=== PATIENT | male | born 1995 | race Two or more races ===

== ENCOUNTER 2019-01-05 09:19 | Day surgery (SDC) | payer SELFPAY ==
[~2019-01-05] VITALS: Ht 180.3 cm; Wt 75.8 kg
[~2019-01-05 09:19] MED LIST: BUPIVACAINE/EPI 0.5% 1:200K ONE
[2019-01-05] MEDS ORDERED: LACTATED RINGERS 1,000 ML IV SCH (09:49)
[2019-01-05] MEDS ORDERED: NONE PER PT (09:51)
[2019-01-05] MEDS ORDERED: PLEASE ENTER HEIGHT AND WEIGHT MC SCH (10:00)
[2019-01-05 10:01] VITALS: BP 120/75
[2019-01-05 10:12] VITALS: BP 120/75
[2019-01-05] MEDS ORDERED: ASPI-650 PO (10:23)
[2019-01-05] MEDS ORDERED: LORA-445 PO (10:23)
[2019-01-05] MEDS ORDERED: MIDAZOLAM 1 MG/ML, 2ML ONE (12:48)
[2019-01-05] MEDS ORDERED: FENTANYL PF 250 MCG/5ML ONE (12:53)
[2019-01-05] MEDS ORDERED: KETOROLAC 30 MG/1 ML ONE (12:54)
[2019-01-05] MEDS ORDERED: ONDANSETRON 2MG/ML, 2ML ONE (12:54)
[2019-01-05] MEDS ORDERED: DEXAMETHASONE 4 MG/ML, 1ML ONE (12:54)
[2019-01-05] MEDS ORDERED: PROPOFOL 10 MG/ML, 20ML ONE (12:54)
[2019-01-05] MEDS ORDERED: PROPOFOL 50 ML ONE (13:06)
[2019-01-05] MEDS ORDERED: FENTANYL PF 100 MCG/2ML ONE (13:45)
[2019-01-05] MEDS ORDERED: OXYcodone 5 MG/5 ML ORAL.SOL UDC ONE (13:45)
[2019-01-05] MEDS ORDERED: hydrALAzine 20 MG/ML, 1ML IV PRN (14:00)
[2019-01-05] MEDS ORDERED: MIDAZOLAM 1 MG/ML, 2ML IV PRN (14:00)
[2019-01-05] MEDS ORDERED: MEPERIDINE/PF 25MG/ML,1ML IVPush PRN (14:00)
[2019-01-05] MEDS ORDERED: OXYcodone 5 MG/5 ML ORAL.SOL UDC PO PRN (14:00)
[2019-01-05] MEDS ORDERED: PROMETHAZINE 25 MG/ML, 1ML IV PRN (14:00)
[2019-01-05] MEDS ORDERED: ONDANSETRON 2MG/ML, 2ML IV PRN (14:00)
[2019-01-05] MEDS ORDERED: HYDROmorphone 2 MG/ML, 1ML IVPush PRN (14:00)
[2019-01-05] MEDS ORDERED: EPHEDRINE 50 MG/ML, 1ML IVPush PRN (14:00)
[2019-01-05] MEDS: FENTANYL PF 100 MCG/2ML IV PRN ×2 (14:06→14:14)
== END 2019-01-05 17:20 | disposition home or self-care (01) ==
LOC: OUT 09:19
PROVIDERS: ATTEND Surgery Vascular Surgery
DX: K40.90 Unilateral inguinal hernia, without obstruction or gangrene, not specified as recurrent (principal); Z72.89 Other problems related to lifestyle; Z79.899 Other long term (current) drug therapy; Z83.3 Family history of diabetes mellitus; Z80.1 Family history of malignant neoplasm of trachea, bronchus and lung
CPT/HCPCS: 49505; C1781; J1100; J1885; J2250; J2405; J2704; J3010; J7120